=== PATIENT | female | born 1970 | race Caucasian/White ===

== ENCOUNTER 2024-08-30 05:02 | Emergency (ER) | payer OTHER ==
[~2024-08-30] VITALS: Ht 157.5 cm; Wt 79.8 kg
[~2024-08-30 05:02] MED LIST: AUGMENTIN125 MG/5 M; FOLIC ACID1 MG PO; PRILOSEC20 MG PO; THEOPHYLLI80 MG/15 M PO; ZANTAC300 MG PO; [UNRECOGNIZED DRUG - REMARK] PO
[2024-08-30] MEDS ORDERED: LIPITOR80 MG (05:13)
[2024-08-30] MEDS ORDERED: COZAAR50 MG (05:13)
[2024-08-30] MEDS ORDERED: PEPCID AC20 MG (05:13)
[2024-08-30] MEDS ORDERED: KETOROLAC TROMETHAMINE 60 MG VIAL IM STA (06:27)
[2024-08-30] MEDS ORDERED: KETOROLAC TROMETHAMINE 60 MG VIAL IM ONE (06:28)
[2024-08-30] MEDS ORDERED: CLINDAMYCIN PHOSPHATE 150 MG/ML (600mg) IM STA (06:28)
[2024-08-30] MEDS ORDERED: CLINDAMYCIN PHOSPHATE 150 MG/ML (300mg) ONE (06:28)
== END 2024-08-30 06:39 | disposition home or self-care (01) ==
LOC: ER 05:02
DX: L03.039 Cellulitis of unspecified toe (principal); Z88.6 Allergy status to analgesic agent
CPT/HCPCS: 96372; 99282; J1885; J3490